=== PATIENT | female | born 1995 | race Caucasian/White ===

== ENCOUNTER 2019-12-19 13:37 | Emergency (ER) | payer SELFPAY ==
[~2019-12-19] VITALS: Ht 165.1 cm; Wt 68.2 kg
[2019-12-19 13:38] VITALS: BP 132/88
[2019-12-19] MEDS ORDERED: NEOSPORIN OINT. PKT 1 PACKET ONE (14:14)
== END 2019-12-19 14:32 | disposition home or self-care (01) ==
LOC: ED 14:26
DX: L03.116 Cellulitis of left lower limb (principal); F17.200 Nicotine dependence, unspecified, uncomplicated
CPT/HCPCS: 99283